=== PATIENT | male | born 1990 | race Two or more races ===

== ENCOUNTER 2021-10-31 17:47 | Emergency (ER) | payer SELFPAY ==
[~2021-10-31] VITALS: Ht 172.7 cm; Wt 68.0 kg
[2021-10-31 17:48] VITALS: BP 128/76
== END 2021-10-31 19:55 | disposition left against medical advice (07) ==
LOC: ER 17:47
DX: Z53.21 Procedure and treatment not carried out due to patient leaving prior to being seen by health care provider (principal)